=== PATIENT | female | born 1950 | race Caucasian/White ===

== ENCOUNTER 2017-12-21 21:30 | Emergency (ER) | payer OTHER ==
[~2017-12-21] VITALS: Ht 152.4 cm; Wt 67.4 kg
[~2017-12-21 21:30] MED LIST: AMOXICILLIN500 MG PO; Aspirin E.C. PO; CYMBALTA20 MG PO; LAMICTAL150 MG PO; LAMICTAL25 MG PO; LIPITOR40 MG PO; LIPITOR5 MG PO; MICARDIS40 MG PO; MOTRIN600 MG PO; PREMARIN0.3 MG PO; PREMARIN0.45 MG PO; PREVACID15 MG PO; PROVENTIL HFA6.7 GM IH; Protonix PO; TAMIFLU30 MG PO; VALIUM5 MG PO; VICODIN 5-3001 EACH PO; Vicodin,Norco 5/325 PO; Zoloft PO
[2017-12-21 22:01] LABS: APPEARANCE SL.HAZY ((CLEAR)); BILIRUBIN NEGATIVE; BLOOD SMALL; COLOR YELLOW ((YELLOW)); GLUCOSE (STRIP) NEGATIVE; KETONES 5; LEUKOCYTES LARGE; NITRITE NEGATIVE; PROTEIN (STRIP) 30; SPECIFIC GRAVITY 1.028 (1.000-1.030)
[2017-12-21 22:13] LABS: BACTERIA 1+ /HPF; EPITHELIAL CELLS RARE /HPF; MUCUS TRACE /LPF; RED BLOOD CELLS 15-20 /HPF (0-5); UCUL ADDED? YES; WHITE BLOOD CELLS TNTC /HPF (0-5)
[2017-12-21 22:35] LABS: HEMATOCRIT 38.3 % (36.0-46.0); HEMOGLOBIN 13.3 G/DL (11.9-15.5); MCH 30.4 PG (29.0-34.0); MCHC 34.7 G/DL (30.0-36.0); MCV 87.4 FL (83-99); PLATELET COUNT 200 K/uL (156-360); RBC DIS.WIDTH-CV 12.6 % (11.8-14.6); RBC DIS.WIDTH-SD 40.1 % (39-53); RED BLOOD COUNT 4.38 M/uL (3.80-5.20); WHITE BLOOD COUNT 4.8 K/uL (4.1-10.2)
[2017-12-21 22:59] LABS: CHLORIDE 108 mEq/L (99-109); POTASSIUM 3.9 mEq/L (3.7-5.4); SODIUM 142 mEq/L (136-147)
[2017-12-21 23:01] LABS: GLUCOSE 126 mg/dL (70-99); TOTAL PROTEIN 6.5 g/dL (6.4-8.3)
[2017-12-21 23:03] LABS: TOTAL BILIRUBIN 0.5 mg/dL (0.0-1.0)
[2017-12-21 23:04] LABS: ALKALINE PHOSPHATASE 87 IU/L (3-129); CREATININE 0.8 mg/dL (0.6-1.3); GFR ESTIMATE (CALCULATED) > 59 mL/min/
[2017-12-21 23:06] LABS: AST (GOT) 14 IU/L (2-34); UREA NITROGEN (BUN) 17 mg/dL (9-23)
[2017-12-21 23:07] LABS: ALT (GPT) 13 IU/L (3-49)
[2017-12-21 23:08] LABS: LIPASE 33 U/L (1.0-51.0)
[2017-12-22] MEDS ORDERED: KEFLEX500 MG PO (00:46)
[2017-12-22] MEDS ORDERED: ULTRAM50 MG PO (01:06)
[2017-12-22] MEDS ORDERED: ZOFRAN ODT4 MG PO (01:06)
[2017-12-22 01:24] VITALS: BP 174/91
== END 2017-12-22 01:25 | disposition home or self-care (01) ==
LOC: EME 21:30
DX: N39.0 Urinary tract infection, site not specified (principal); K59.00 Constipation, unspecified; I10 Essential (primary) hypertension; E78.5 Hyperlipidemia, unspecified; K21.9 Gastro-esophageal reflux disease without esophagitis; F41.9 Anxiety disorder, unspecified; F32.9 Major depressive disorder, single episode, unspecified; Z90.49 Acquired absence of other specified parts of digestive tract; Z90.710 Acquired absence of both cervix and uterus; Z88.5 Allergy status to narcotic agent
CPT/HCPCS: 74177; 80053; 81003; 83690; 85027; 87086; 99281; 99285; J0696; J2270; J2405; J7030

== ENCOUNTER 2018-04-01 23:02 | Emergency (ER) | payer OTHER ==
[~2018-04-01] VITALS: Ht 154.9 cm; Wt 66.4 kg
[~2018-04-01 23:02] MED LIST changes: +KEFLEX500 MG PO; +ULTRAM50 MG PO; +ZOFRAN ODT4 MG PO
[2018-04-02 02:52] LABS: HEMATOCRIT 38.8 % (36.0-46.0); HEMOGLOBIN 13.2 G/DL (11.9-15.5); MCH 30.2 PG (29.0-34.0); MCV 88.8 FL (83-99); PLATELET COUNT 186 K/uL (156-360); RBC DIS.WIDTH-SD 42.5 % (39-53); RED BLOOD COUNT 4.37 M/uL (3.80-5.20)
[2018-04-02 03:09] VITALS: BP 154/78
[2018-04-02 03:27] LABS: ALBUMIN 4.2 G/DL (3.2-4.8); ALKALINE PHOSPHATASE 89 IU/L (3-129); ALT (GPT) 12 IU/L (3-49); AST (GOT) 15 IU/L (2-34); CHLORIDE 107 MEQ/L (99-109); CREATININE 0.8 MG/DL (0.6-1.3); GFR ESTIMATE (CALCULATED) > 59 mL/min/; GLUCOSE 102 mg/dL (70-99); POTASSIUM 3.8 MEQ/L (3.7-5.4); SODIUM 140 MEQ/L (136-147); TOTAL BILIRUBIN 0.5 MG/DL (0.0-1.0); TOTAL PROTEIN 6.3 G/DL (6.4-8.3); UREA NITROGEN (BUN) 21 mg/dL (9-23)
[2018-04-02] MEDS ORDERED: ATARAX,VISTARIL25 MG PO (03:30)
[2018-04-02] MEDS ORDERED: PREDNISONE10 M1 PO (03:30)
[2018-04-02] MEDS ORDERED: ELIMITE 5% CREA60 GM TP (03:32)
== END 2018-04-02 04:32 | disposition home or self-care (01) ==
LOC: EME 23:02
PROVIDERS: Physician Assistant
DX: Z88.5 Allergy status to narcotic agent (principal); L30.9 Dermatitis, unspecified; W57.XXXA Bitten or stung by nonvenomous insect and other nonvenomous arthropods, initial encounter
CPT/HCPCS: 80053; 85027; J1200; J2060; J2930